=== PATIENT | female | born 1960 | race African-American/Black ===

== ENCOUNTER 2021-06-27 18:51 | Inpatient (IN) | payer BC ==
[~2021-06-27] VITALS: Ht 175.3 cm; Wt 54.4 kg
[2021-06-27] MEDS ORDERED: SODIUM CHLORIDE 0.9% 1,000 ML IV ONE (20:15)
[2021-06-27 21:08] LABS: HEMATOCRIT. 31.6 % (36.0-48.0); HEMOGLOBIN. 10.7 g/dL (12.0-16.0); MEAN CORPUSCULAR HEMOGLOBIN 38.1 pg (28.0-32.0); MEAN CORPUSCULAR VOLUME 112.3 fL (81.0-99.0); RED BLOOD CELL COUNT 2.82 mill/uL (4.2-5.4)
[2021-06-27 21:14] LABS: CHLORIDE 99 mEq/L (98-107)
[2021-06-27 21:17] LABS: INR 1.2; PARTIAL THROMBOPLASTIN TIME 30.5 sec (23.4-31.0); PROTHROMBIN TIME 12.5 sec (9.6-11.0)
[2021-06-27 21:27] LABS: MEAN PLATELET VOLUME 7.4 fl (7.4-10.4); PLATELET 151 x1000/uL (130-400)
[2021-06-27 21:29] LABS: NUCLEATED RED BLOOD CELLS 4 /100 WBC; PLATELET ESTIMATE NORMAL
[2021-06-27] MEDS ORDERED: VANCOMYCIN 1 G PREMIX 200 ML IV ONE (22:00)
[2021-06-27] MEDS ORDERED: PIPERACILLIN/TAZ 3.375G PREMIX 50 ML IV ONE (22:00)
[2021-06-27] MEDS ORDERED: ASPIRIN 325MG EC TABLET PO ONE (22:00)
[2021-06-27] MEDS ORDERED: MORPHINE SULFATE 2 MG/ML CPJ (NOT FOR IM USE) IV PRN (22:45)
[2021-06-27] MEDS ORDERED: VANCOMYCIN 1 G PREMIX 200 ML IV SCH (22:45)
[2021-06-27] MEDS ORDERED: CLONIDINE 0.1MG TABLET PO PRN (22:45)
[2021-06-27] MEDS ORDERED: ACETAMINOPHEN 325MG TABLET PO PRN (22:45)
[2021-06-28] MEDS ORDERED: DEXTROSE 50% WATER 50ML SYRINGE IV PRN (03:15)
[2021-06-28 03:17] LABS: CLARITY URINE CLEAR (CLEAR); COLOR URINE DARK YELLOW (YELLOW); KETONES URINE NEGATIVE (NEGATIVE); LEUKOCYTE ESTERASE URINE 1+ (NEGATIVE); NITRITE URINE NEGATIVE (NEGATIVE); OCCULT BLOOD URINE NEGATIVE (NEGATIVE); PROTEIN URINE NEGATIVE (NEGATIVE)
[2021-06-28 05:35] LABS: HEMATOCRIT. 32.6 % (36.0-48.0); HEMOGLOBIN. 11.2 g/dL (12.0-16.0); MEAN CORPUSCULAR HEMOGLOBIN 37.5 pg (28.0-32.0); MEAN CORPUSCULAR VOLUME 109.2 fL (81.0-99.0); RED BLOOD CELL COUNT 2.98 mill/uL (4.2-5.4); RED CELL DISTRIBUTION WIDTH 17.9 % (11.6-14.6)
[2021-06-28 05:42] LABS: CHLORIDE 102 mEq/L (98-107)
[2021-06-28 05:49] LABS: LDL CHOLESTEROL 202 mg/dL (5-100)
[2021-06-28 05:51] LABS: HDL CHOLESTEROL 18 mg/dL (40-59)
[2021-06-28] MEDS ORDERED: PIPERACILLIN/TAZOBACTAM 3.375 G in DEXTROSE 5% WATER 50 ML IV SCH (06:00)
[2021-06-28] MEDS: BLOOD SUGAR DIAGNOSTIC STRIP TEST SCH ×5 (06:41→21:00)
[2021-06-28] MEDS: INSULIN LISPRO (MEDIUM DOSE) 100 UNITS/ML SUBCUT SCH ×5 (06:42→21:00)
[2021-06-28 07:24] LABS: PLATELET ESTIMATE NORMAL
[2021-06-28 07:25] LABS: MEAN PLATELET VOLUME 7.8 fl (7.4-10.4); PLATELET 136 x1000/uL (130-400)
[2021-06-28] MEDS ORDERED: FUROSEMIDE 40MG/4ML VIAL IV SCH (09:00)
[2021-06-28 10:05] VITALS: BP 93/57
[2021-06-28 10:09] VITALS: BP 93/57
[2021-06-28] MEDS: MIDODRINE HCL 2.5MG TABLET PO SCH ×3 (11:06→17:31)
[2021-06-28 12:00] VITALS: BP 85/48
[2021-06-28] MEDS ORDERED: NALOXONE HCL 0.4MG/ML VIAL IV PRN (12:30)
[2021-06-28 16:06] VITALS: BP 83/45
[2021-06-28] MEDS: DEXT 5%/0.9% NACL 1,000 ML IV SCH (17:31)
[2021-06-28] MEDS: PIPERACILLIN/TAZOBACTAM 3.375 G in DEXTROSE 5% WATER 50 ML IV SCH (18:00)
[2021-06-28 20:00] VITALS: BP 90/52
[2021-06-29] VITALS: BP 93/63
[2021-06-29 04:00] VITALS: BP 91/57
[2021-06-29] MEDS: PIPERACILLIN/TAZOBACTAM 3.375 G in DEXTROSE 5% WATER 50 ML IV SCH ×3 (05:56→17:27)
[2021-06-29] MEDS: BLOOD SUGAR DIAGNOSTIC STRIP TEST SCH ×4 (06:53→21:34)
[2021-06-29] MEDS: INSULIN LISPRO (MEDIUM DOSE) 100 UNITS/ML SUBCUT SCH ×4 (07:25→21:00)
[2021-06-29 08:00] VITALS: BP 93/51
[2021-06-29] MEDS: MIDODRINE HCL 2.5MG TABLET PO SCH ×3 (08:33→16:39)
[2021-06-29] MEDS: DEXT 5%/0.9% NACL 1,000 ML IV SCH (08:33)
[2021-06-29] MEDS ORDERED: FUROSEMIDE 40MG/4ML VIAL IV SCH (09:00)
[2021-06-29 12:00] VITALS: BP 103/51
[2021-06-29 16:00] VITALS: BP 97/55
[2021-06-29] MEDS ORDERED: VANCOMYCIN 500 MG PREMIX 100 ML IV SCH (16:00)
[2021-06-29] MEDS: METOCLOPRAMIDE HCL 10MG/2ML VIAL IV SCH (16:39)
[2021-06-29 20:00] VITALS: BP 100/53
[2021-06-29] MEDS ORDERED: VANCOMYCIN 750 MG PREMIX 150 ML IV SCH (22:00)
[2021-06-30] VITALS: BP 105/61
[2021-06-30 04:00] VITALS: BP 103/62
[2021-06-30] MEDS: DEXT 5%/0.9% NACL 1,000 ML IV SCH (05:00)
[2021-06-30] MEDS: PIPERACILLIN/TAZOBACTAM 3.375 G in DEXTROSE 5% WATER 50 ML IV SCH ×2 (06:22→17:30)
[2021-06-30] MEDS: METOCLOPRAMIDE HCL 10MG/2ML VIAL IV SCH ×3 (06:22→17:31)
[2021-06-30] MEDS: BLOOD SUGAR DIAGNOSTIC STRIP TEST SCH ×4 (06:35→21:08)
[2021-06-30 06:47] LABS: HEMATOCRIT. 28.6 % (36.0-48.0); HEMOGLOBIN. 9.8 g/dL (12.0-16.0); MEAN CORPUSCULAR HEMOGLOBIN 38.2 pg (28.0-32.0); MEAN CORPUSCULAR VOLUME 111.7 fL (81.0-99.0); RED BLOOD CELL COUNT 2.56 mill/uL (4.2-5.4); RED CELL DISTRIBUTION WIDTH 18.5 % (11.6-14.6)
[2021-06-30] MEDS: INSULIN LISPRO (MEDIUM DOSE) 100 UNITS/ML SUBCUT SCH ×4 (07:50→21:00)
[2021-06-30 08:00] VITALS: BP 95/55
[2021-06-30 09:40] LABS: NUCLEATED RED BLOOD CELLS 1 /100 WBC
[2021-06-30 09:42] LABS: PLATELET ESTIMATE SLIGHTLY DECREASED
[2021-06-30] MEDS: MIDODRINE HCL 2.5MG TABLET PO SCH ×3 (09:48→17:31)
[2021-06-30 12:00] VITALS: BP 98/45
[2021-06-30] MEDS ORDERED: DEXTROSE 10% WATER 500 ML IV ONE (12:30)
[2021-06-30] MEDS: DEXT 10% WATER 1,000 ML IV SCH (15:32)
[2021-06-30 16:00] VITALS: BP 98/59
[2021-06-30] MEDS ORDERED: PAMIDRONATE DISODIUM 90 MG in SODIUM CHLORIDE 0.9% 500 ML IV SCH (16:00)
[2021-06-30 20:00] VITALS: BP 101/57
[2021-06-30] MEDS: ONDANSETRON HCL 4MG/2ML INJ IV PRN (21:57)
[2021-07-01] VITALS (8 sets, daily range): BP systolic 85–114; BP diastolic 43–71
[2021-07-01] MEDS: PIPERACILLIN/TAZOBACTAM 3.375 G in DEXTROSE 5% WATER 50 ML IV SCH ×2 (06:07→17:46)
[2021-07-01] MEDS: METOCLOPRAMIDE HCL 10MG/2ML VIAL IV SCH ×3 (06:08→17:34)
[2021-07-01] MEDS: BLOOD SUGAR DIAGNOSTIC STRIP TEST SCH ×4 (06:28→21:44)
[2021-07-01] MEDS: INSULIN LISPRO (MEDIUM DOSE) 100 UNITS/ML SUBCUT SCH ×4 (06:30→21:00)
[2021-07-01 06:49] LABS: HEMATOCRIT. 21.6 % (36.0-48.0); HEMOGLOBIN. 7.4 g/dL (12.0-16.0); MEAN CORPUSCULAR HEMOGLOBIN 38.1 pg (28.0-32.0); MEAN CORPUSCULAR VOLUME 110.5 fL (81.0-99.0); RED BLOOD CELL COUNT 1.95 mill/uL (4.2-5.4); RED CELL DISTRIBUTION WIDTH 18.6 % (11.6-14.6)
[2021-07-01] MEDS: MIDODRINE HCL 2.5MG TABLET PO SCH ×3 (08:36→17:33)
[2021-07-01] MEDS: DEXT 10% WATER 1,000 ML IV SCH (08:37)
[2021-07-01] MEDS ORDERED: SODIUM POLYSTYRENE SULFONATE 15 G/60 ML BOT PO NR (11:00)
[2021-07-01 12:44] LABS: HEMOGLOBIN 7.7 g/dL (12.0-16.0)
[2021-07-02] VITALS: BP 95/41
[2021-07-02 04:00] VITALS: BP 90/43
[2021-07-02 04:02] LABS: NUCLEATED RED BLOOD CELLS 9 /100 WBC
[2021-07-02] MEDS: METOCLOPRAMIDE HCL 10MG/2ML VIAL IV SCH (06:38)
[2021-07-02] MEDS: DEXT 10% WATER 1,000 ML IV SCH (06:38)
[2021-07-02] MEDS: PIPERACILLIN/TAZOBACTAM 3.375 G in DEXTROSE 5% WATER 50 ML IV SCH (06:38)
[2021-07-02] MEDS: BLOOD SUGAR DIAGNOSTIC STRIP TEST SCH (06:39)
[2021-07-02] MEDS: INSULIN LISPRO (MEDIUM DOSE) 100 UNITS/ML SUBCUT SCH (07:48)
[2021-07-02 08:15] VITALS: BP 85/40
[2021-07-02] MEDS: ONDANSETRON HCL 4MG/2ML INJ IV PRN (08:44)
[2021-07-02] MEDS: MIDODRINE HCL 2.5MG TABLET PO SCH (08:45)
[2021-07-02 09:00] VITALS: BP 64/35
[2021-07-02] MEDS ORDERED: LEVOTHYROXINE SODIUM 25MCG TABLET PO NR (09:00)
[2021-07-02] MEDS ORDERED: MIDODRINE HCL 2.5MG TABLET PO SCH (09:00)
[2021-07-02] MEDS ORDERED: MULTIVITAMINS,THER W-MINERALS TABLET PO SCH (09:00)
[2021-07-02] MEDS ORDERED: MORPHINE SULFATE 250 MG in DEXT 5% WATER 240 ML IV SCH (09:30)
[2021-07-02 09:40] VITALS: BP 80/39
[2021-07-02 10:26] LABS: MEAN CORPUSCULAR HEMOGLOBIN 37.6 pg (28.0-32.0); MEAN CORPUSCULAR VOLUME 129.6 fL (81.0-99.0); MEAN PLATELET VOLUME 7.9 fl (7.4-10.4); PLATELET 80 x1000/uL (130-400); RED BLOOD CELL COUNT 1.36 mill/uL (4.2-5.4); RED CELL DISTRIBUTION WIDTH 21.8 % (11.6-14.6)
[2021-07-02 10:34] LABS: HEMOGLOBIN. 5.1 g/dL (12.0-16.0)
[2021-07-02 10:35] LABS: HEMATOCRIT. 17.7 % (36.0-48.0)
[2021-07-02] MEDS ORDERED: MIDODRINE HCL 5MG TABLET PO SCH (13:00)
[2021-07-02 21:47] LABS: NUCLEATED RED BLOOD CELLS 11 /100 WBC; PLATELET ESTIMATE DECREASED
[2021-07-03] MEDS ORDERED: LEVOTHYROXINE SODIUM 25MCG TABLET PO SCH (07:20)
== END 2021-07-02 13:22 | DRG 73 ==
LOC: ER 18:51 → MICUSO 06-28 02:00 → 7WST 06-28 07:22 → 6WST 06-28 12:41
PROVIDERS: ADMIT Internal Medicine Nephrology; ATTEND Internal Medicine Nephrology
DX: G90.8 Other disorders of autonomic nervous system (principal); J96.00 Acute respiratory failure, unspecified whether with hypoxia or hypercapnia; E43 Unspecified severe protein-calorie malnutrition; K83.1 Obstruction of bile duct; J18.9 Pneumonia, unspecified organism; K72.00 Acute and subacute hepatic failure without coma; N17.0 Acute kidney failure with tubular necrosis; N17.9 Acute kidney failure, unspecified; I48.20 Chronic atrial fibrillation, unspecified; D61.818 Other pancytopenia; C79.51 Secondary malignant neoplasm of bone; C78.7 Secondary malignant neoplasm of liver and intrahepatic bile duct; I13.0 Hypertensive heart and chronic kidney disease with heart failure and stage 1 through stage 4 chronic kidney disease, or unspecified chronic kidney disease; Z68.1 Body mass index [BMI] 19.9 or less, adult; J44.0 Chronic obstructive pulmonary disease with (acute) lower respiratory infection; N39.0 Urinary tract infection, site not specified; Z20.822 Contact with and (suspected) exposure to COVID-19; I95.9 Hypotension, unspecified; Z66 Do not resuscitate; N18.9 Chronic kidney disease, unspecified; E11.22 Type 2 diabetes mellitus with diabetic chronic kidney disease; E83.52 Hypercalcemia; Z51.5 Encounter for palliative care; I50.9 Heart failure, unspecified; E78.5 Hyperlipidemia, unspecified; E78.1 Pure hyperglyceridemia; E11.649 Type 2 diabetes mellitus with hypoglycemia without coma; C50.919 Malignant neoplasm of unspecified site of unspecified female breast; Z85.3 Personal history of malignant neoplasm of breast; Z86.718 Personal history of other venous thrombosis and embolism; Z79.899 Other long term (current) drug therapy; Z79.4 Long term (current) use of insulin; Z92.3 Personal history of irradiation; Z92.21 Personal history of antineoplastic chemotherapy; Z87.74 Personal history of (corrected) congenital malformations of heart and circulatory system
CPT/HCPCS: 36415; 71045; 80048; 80053; 80061; 80076; 80202; 81003; 82962; 83605; 83880; 84145; 84443; 84484; 85014; 85018; 85025; 86850; 86900; 86920; 93005; 93306; 93970; 99291; J1940; J2274; J2405; J2430; J2543; J2765; J3370; J7030; J7040; J7042; J7060; U0003; U0005; A4315